=== PATIENT | female | born 1965 | race Caucasian/White ===

== ENCOUNTER 2016-05-25 14:21 | Emergency (ER) | payer BC ==
[~2016-05-25] VITALS: Ht 157.5 cm; Wt 74.7 kg
[~2016-05-25 14:21] MED LIST: ACID CONTROL150 MG PO; AMITIZA24 MICROGR PO; AMITRIPTYLINE H10 MG PO; ASPIR 8181 M1 PO; Atarax,Vistaril PO; BENADRYL25 MG PO; BENTYL20 MG PO; COLACE100 MG PO; Chlor-Trimeton PO; DICYCLOMINE HCL20 MG PO; DOXEPIN HCL25 MG PO; ESTRACE0.5 MG PO; ESTRADERM1 EAC1; Epipen Adult Autoinj IM; FLOMAX0.4 MG PO; FLUOXETINE HCL20 MG PO; HYDROXYZINE HCL50 M1 PO; INDERAL40 MG PO; INDERAL60 MG PO; MOTRIN600 MG PO; MOTRIN800 MG PO; Melatonin PO; Non-Formulary PO; PERCOCET 5/31 TABLET PO; PREDNISONE20 MG PO; PROPRANOLOL; PROPRANOLOL HCL20 MG PO; PROPRANOLOL HCL40 MG PO; PROPRANOLOL HCL60 M1 PO; PROZAC20 M1 PO; TRAMADOL HCL50 MG PO; TRAZODONE HCL50 MG PO; Tylenol Regular Stre PO; VEGETABLE LAXA8.6 MG PO; VICODIN 5-3001 EACH PO; VICODIN,LORT1 TABLET PO; [UNRECOGNIZED DRUG - OTHER]
[2016-05-25 15:15] LABS: HEMATOCRIT 40.7 % (36.0-46.0); MCH 30.7 PG (29.0-34.0); MCHC 33.7 G/DL (30.0-36.0); MCV 91.3 FL (83-99); MEAN PLAT.VOLUME 10.2 uM^3 (9.5-12.4); PLATELET COUNT 274 K/uL (156-360); RBC DIS.WIDTH-CV 11.7 % (11.8-14.6); RBC DIS.WIDTH-SD 38.3 % (39-53); RED BLOOD COUNT 4.46 M/uL (3.80-5.20); WHITE BLOOD COUNT 7.1 K/uL (4.1-10.2)
[2016-05-25 15:47] LABS: ADD MIUA? YES; BILIRUBIN NEGATIVE; BLOOD SMALL; COLOR YELLOW ((YELLOW)); GLUCOSE (STRIP) NEGATIVE; KETONES NEGATIVE; LEUKOCYTES NEGATIVE; NITRITE NEGATIVE; PROTEIN (STRIP) NEGATIVE; UROBILINOGEN 0.2 MG/DL (0.2-1.0)
[2016-05-25 15:52] LABS: ANION GAP 8 MEQ/L (2-14); CHLORIDE 102 MEQ/L (99-109); SAMPLE HEMOLYSIS CHECK 0; SAMPLE ICTERIC CHECK 0; SAMPLE LIPEMIA CHECK 0; SODIUM 139 MEQ/L (136-147)
[2016-05-25 15:58] LABS: GFR ESTIMATE (CALCULATED) > 59 mL/min/; GLUCOSE 88 mg/dL (70-99); LIPASE 25 U/L (1.0-51.0); UREA NITROGEN (BUN) 19 mg/dL (9-23)
[2016-05-25 16:27] LABS: DIRECT BILIRUBIN 0.1 mg/dL (0.0-0.3); TOTAL BILIRUBIN 0.3 MG/DL (0.0-1.0)
[2016-05-25 16:33] LABS: ALKALINE PHOSPHATASE 62 IU/L (3-129)
[2016-05-25 16:40] LABS: BACTERIA RARE; CASTS NONE SEEN /LPF; CRYSTALS NONE SEEN; EPITHELIAL CELLS NONE SEEN; MUCUS RARE; RED BLOOD CELLS 0-5 /HPF (0-5); UCUL ADDED? NO; WHITE BLOOD CELLS 0-5 /HPF (0-5)
[2016-05-25] MEDS ORDERED: MIRALAX255 GM PO (16:58)
[2016-05-25] MEDS ORDERED: INDOCIN25 MG PO (16:59)
[2016-05-25] MEDS ORDERED: ZOFRAN ODT4 MG PO (16:59)
[2016-05-25 17:11] VITALS: BP 141/77
== END 2016-05-25 17:12 | disposition home or self-care (01) ==
LOC: EME 14:21
DX: M54.5 Low back pain (principal); R10.32 Left lower quadrant pain; K59.00 Constipation, unspecified; Z87.891 Personal history of nicotine dependence; Z87.442 Personal history of urinary calculi; Z88.6 Allergy status to analgesic agent
CPT/HCPCS: 74176; 80048; 80076; 81003; 83690; 85027; 87086; 99281; 99285; J1885; J2405; J3010